=== PATIENT | male | born 1950 | race Caucasian/White ===

== ENCOUNTER 2018-08-09 02:51 | Outpatient (CLI) | payer MEDICARE, BC ==
[2018-08-09 12:29] LABS: #Basophils 0.1 thou/uL (0.0-0.2); #Eosinphils 0.3 thou/uL (0.0-0.7); #Lymphocytes 1.4 thou/uL (1.20-3.40); #Monocytes 0.6 thou/uL (0.11-0.59); #Neutrophils 3.1 thou/uL (1.40-6.50); %Eosinophils 5.7 % (0.0-10.0); %Lymphocytes 25.5 % (21.0-51.0); %Monocytes 11.5 % (0.0-10.0); %Neutrophils 56.3 % (42.0-75.0); Hemoglobin 15.9 g/dL (14.0-18.0); Mean Corpuscular HGB CONC 33.3 g/dL (32.0-36.0); Mean Corpuscular Volume 96.1 fL (78.0-98.0); Mean Platelet Volume 7.5 fL (7.4-10.4); Platelet Count 257 thou/uL (130-400); Red Blood Cell (RBC) Count 4.98 mill/uL (4.70-6.10); White Blood Cell (WBC) Count 5.6 thou/uL (4.8-10.8)
[2018-08-09 12:33] LABS: Bilirubin Negative (Negative); Blood, Urine Negative (Negative); Clarity CLEAR (Clear); Glucose, Urine (Dipstick) Negative (Negative); Leukocyte Negative (Negative); Nitrite Negative (Negative); Protein, Urine (Dipstick) Negative (Neg-Trace); Specific Gravity, Urine 1.006 (1.002-1.036); Urobilinogen 0.2 mg/dL (0.2-1.0); pH, Urine 6.5 (5.0-9.0)
[2018-08-09 12:35] LABS: Prothrombin Time 13.3 SEC (12.0-14.7)
[2018-08-09 12:37] LABS: Bacteria/HPF None Seen HPF (None Seen); Hyaline Casts/LPF 0-3 HYALINE CAST LPF (0-3 Hyaline); RBC/HPF 0-3 HPF (0-3); Squamous Epithelial None Seen HPF (0-3); WBC/HPF None Seen HPF (0-3)
[2018-08-09 12:56] LABS: Anion Gap 12 mmol/L (10-20); BUN (Urea Nitrogen) 10 mg/dL (8.4-25.7); Calc. Creatinine Clearance 0 mL/min (70-130); Calcium 10.2 mg/dL (7.8-10.44); Carbon Dioxide 27 mmol/L (23-31); Chloride 102 mmol/L (98-107); Estimated GFR-MDRD 90; Glucose 93 mg/dL (80-115); Sodium 137 mmol/L (136-145)
== END 2018-08-09 02:52 | disposition home or self-care (01) ==
LOC: LABBT 02:51
PROVIDERS: ATTEND Orthopaedic Surgery
DX: Z01.818 Encounter for other preprocedural examination (principal); M17.12 Unilateral primary osteoarthritis, left knee
CPT/HCPCS: 80048; 81001; 85025; 85610; 87081; 93005; 93010

== ENCOUNTER 2018-08-20 05:26 | Inpatient (IN) | payer MEDICARE, BC ==
[2018-08-20] MEDS ORDERED: Tranexamic Acid 1,000 MG/10 ML VIAL ONE ×2 (06:20→09:01)
[2018-08-20] MEDS ORDERED: Sodium Chloride 0.9% 100 ML ONE (06:20)
[2018-08-20] MEDS ORDERED: Vancomycin HCl 1.5 GM in Sodium Chloride 0.9% 250 ML 300 ML IVPB SCH ×2 (06:30→20:00)
[2018-08-20] MEDS ORDERED: CEFAZOLIN 2 GM in Premix Bag 1 BAG IVPB SCH (06:30)
[2018-08-20] MEDS ORDERED: Tranexamic Acid 1,000 MG in Sodium Chloride 0.9% 100 ML IVPB SCH ×2 (06:30→07:30)
[2018-08-20] MEDS ORDERED: Midazolam HCl 2 mg/2 ml Vial ONE (06:32)
[2018-08-20] MEDS ORDERED: Fentanyl 100 MCG/2 ML VIAL ONE ×2 (06:32→09:01)
[2018-08-20] MEDS ORDERED: Lidocaine 1% (PF) 30 ML VIAL ONE (06:32)
[2018-08-20] MEDS ORDERED: Fentanyl 100 MCG/2 ML VIAL SLOW IVP PRN ×2 (07:17→08:08)
[2018-08-20] MEDS ORDERED: Acetaminophen 325 MG TAB PO PRN (07:17)
[2018-08-20] MEDS ORDERED: diphenhydrAMINE 25 MG CAP PO PRN (07:17)
[2018-08-20] MEDS ORDERED: Promethazine HCl 25 MG/ML VIAL IM PRN ×3 (07:17→09:25)
[2018-08-20] MEDS ORDERED: traMADol HCl 50 MG TAB PO PRN ×3 (07:17→08:08)
[2018-08-20] MEDS ORDERED: Zolpidem Tartrate 5 MG TAB PO PRN ×2 (07:17→08:08)
[2018-08-20] MEDS ORDERED: Ondansetron PF 4 MG/2 ML Vial IVP PRN ×2 (07:17→08:08)
[2018-08-20] MEDS ORDERED: HYDROcodone/Acetaminophen 10/325 mg Tablet PO PRN ×3 (07:17→08:08)
[2018-08-20] MEDS ORDERED: Bupivacaine PF 0.5% 30 ML VIAL ONE (07:50)
[2018-08-20] MEDS ORDERED: Ropivacaine 0.2% 550 ML 550 ML NERVE BLCK SCH (08:08)
[2018-08-20] MEDS ORDERED: Ropivacaine HCl/PF 250 ML in Premix Bag 1 BAG NERVE BLCK SCH (08:51)
[2018-08-20] MEDS ORDERED: Promethazine HCl 25 MG/ML VIAL SLOW IVP PRN (09:25)
[2018-08-20] MEDS ORDERED: Ondansetron HCl/PF 4 MG/2 ML Vial IVP PRN (09:25)
[2018-08-20] MEDS: Sodium Chloride 0.9% 1,000 ML IV SCH ×2 (10:48→18:42)
[2018-08-20] MEDS: Aspirin 81 mg Enteric Coated Tablet PO SCH ×2 (10:48→21:06)
[2018-08-20] MEDS: Fluticasone Propionate Nasal Spray 16 gm Bottle NASAL SCH (10:49)
[2018-08-20] MEDS ORDERED: Ropivacaine 0.2% HCl/PF (40 MG/20 ML VIAL) ONE (11:11)
[2018-08-20] MEDS ORDERED: Ropivacaine 0.5% HCl/PF (150 MG/30 ML VIAL) ONE (11:11)
[2018-08-20] MEDS ORDERED: Ondansetron PF 4 MG/2 ML Vial ONE (11:48)
[2018-08-20] MEDS ORDERED: Ketorolac Tromethamine 30 MG/ML VIAL ONE (11:48)
[2018-08-20] MEDS ORDERED: Lidocaine 1% PF 5 ML VIAL ONE (11:48)
[2018-08-20] MEDS ORDERED: PROPOFOL 200 MG/20 ML VIAL ONE (11:48)
[2018-08-20] MEDS: Montelukast Sodium 10 mg Tablet PO SCH (12:28)
[2018-08-20] MEDS: Ketorolac Tromethamine 30 MG/ML VIAL IVP SCH ×2 (12:28→18:59)
[2018-08-20] MEDS ORDERED: Ketorolac Tromethamine 30 MG/ML VIAL IVP SCH (14:00)
--- NOTE | 2018-08-20 15:59 | OP ---
DATE OF PROCEDURE: 08/20/2018 PREOPERATIVE DIAGNOSIS: Left knee osteoarthrosis. POSTOPERATIVE DIAGNOSIS: Left knee osteoarthrosis. PROCEDURE PERFORMED: Left total knee replacement using [employer] pinless navigation. ORTHOPEDIC RADIOLOGIC TECHNOLOGIST: Bereket Zendejas PA-C. BLOOD LOSS: Minimal. COMPLICATIONS: None. ANESTHESIA: He did have a general anesthetic as well as a preoperative block. IMPLANTS: To the left knee is a [employer] triathlon total knee system the femur size 6 cruciate retaining. We used a size 6 primary tibial base plate, 6 x 9 mm CS tibial polyethylene, and we used a 32 x 10 asymmetric X3 patella. DISPOSITION: He did go to recovery in stable condition. INDICATIONS: A 68-year-old male has bilateral knee arthritis with the left being worse than the right, and at this time, the patient wished to have his knee replaced. PROCEDURE IN DETAIL: After all appropriate consent forms were explained and signed, the patient was taken back to the operating room and at this time was given general anesthetic. Once the level of anesthesia was appropriate, a well-padded tourniquet was placed on the left leg, and the leg was then prepped and draped in standard surgical fashion. The limb was exsanguinated and tourniquet taken up to 300 mmHg. Midline incision was made with a 10 blade down through the skin and subcutaneous tissue. Bovie electrocautery was used to coagulate any brisk venous bleeding. A new blade was used to make a medial parapatellar arthrotomy. Small subperiosteal release was performed medially and excess fat pad was removed. The knee was flexed up to gain access to the femur. The femur was navigated and distal femoral resection was made. Epicondylar access was used to align our sizing jig and this was pinned in place. We sized our femur to be a 6. 4:1 cutting block was applied and pinned. Anterior and posterior chamfer cuts were then made. We navigated out our proximal tibia and made our proximal tibial resection. Spreaders were used to remove any posterior osteophytes off the back of the femur as well as remaining meniscal tissue. A long alignment paul was then used to achieve correct rotation of our tibial baseplate and a size 6 was chosen. This was pinned in place. We trialed the polyethylene and a 6 x 9 mm CS polyethylene gave us full extension and good stability throughout range of motion. Two towel clips and a saw were used to cut our patella. Three lug nuts were drilled and 32 x 10 asymmetric X3 patella was trialed which sat nicely in the trochlear groove. We then drilled our femur and punched our tibia. All components were removed. The knee was thoroughly irrigated and dried. Cement was mixed into the cement gun on the back table. Components were then placed. The knee was held out in full extension until the cement had dried. All excess bone cement was removed. Multiple #2 Vicryl stitches as well as a Quill were used to close our extensor mechanism. 0 Quill followed by a running Monoderm was then used to close the skin. Surgicel glue was then used on the skin. Once this had dried, soft tissue dressing was applied to the limb, tourniquet was let down, and the toes pinked up nicely. The patient was then awakened and taken to the recovery room in stable condition. All counts were correct at the end of the case. The patient did receive preoperative IV antibiotics. The patient was injected with Exparel for postoperative pain relief. Job ID: [id number]
[2018-08-20] MEDS: CEFAZOLIN 2 GM in Premix Bag 1 BAG IVPB SCH ×2 (16:12→21:14)
[2018-08-20] MEDS ORDERED: hydrALAZINE 20 MG/ML VIAL SLOW IVP PRN (16:53)
--- NOTE | 2018-08-20 17:18 | CON ---
DATE OF CONSULTATION: PRIMARY CARE PROVIDER: Dr. Dang Hylton. REASON FOR CONSULTATION: Management of medical comorbidities. HISTORY OF PRESENT ILLNESS: Mr. Yuen is a pleasant 68-year-old gentleman, who underwent left total knee replacement for left knee osteoarthrosis on 08/20/2018. Hospitalist Service has been consulted for management of medical comorbidities. He denies any chest pain or shortness of breath. He denies any fevers or chills. He denies any nausea or vomiting. He reports that pain in the left knee is controlled. REVIEW OF SYSTEMS: All other systems reviewed and found to be negative. PAST MEDICAL HISTORY: Significant for hypertension and dyslipidemia. PAST SURGICAL HISTORY: Significant for left inguinal hernia repair, left cataract surgery, and colonoscopy. SOCIAL HISTORY: The patient denies tobacco use. He drinks 3 or 4 beers a day. He goes for extended periods of time without drinking without any withdrawal symptoms. FAMILY HISTORY: No family history of premature coronary artery disease. ALLERGIES: SULFA. CURRENT HOME MEDICATIONS: 1. Flonase 1 spray nasally daily. 2. Glucosamine/chondroitin complex one caplet daily. 3. Singulair 10 mg daily. 4. Pindolol 5 mg two times a day. 5. Simvastatin 40 mg at bedtime. PHYSICAL EXAMINATION: GENERAL: On examination, Mr. Yuen is awake and alert, not in acute distress. He is obese, with a BMI of 31.8. VITAL SIGNS: Blood pressure is 136/81, pulse 64, respiratory rate 18, and oxygen saturation 96% on room air. He is afebrile. EYES: No scleral icterus, no conjunctival pallor. ENT: Moist mucosal membranes. No oropharyngeal erythema or exudates. NECK: Supple, nontender, trachea is midline. RESPIRATORY: Accessory muscles of breathing are not active. Chest wall movements are symmetric bilaterally. Lungs are clear to auscultation without wheeze, rhonchi, or crepitations. CARDIOVASCULAR: S1 and S2 are heard, regular. Peripheral pulses palpable. No carotid bruit. No pericardial rub. ABDOMEN: Soft, nontender, bowel sounds heard. NEUROLOGIC: Cranial nerves 2 through 12 are intact. MUSCULOSKELETAL: Status post left knee surgery. LYMPHATIC: No cervical lymphadenopathy. PSYCHIATRIC: Normal mood, normal affect, the patient is oriented to person, place, and time. LABORATORY DATA: Mr. Yuen's labs and investigations were reviewed. On 08/09/2018, he had an unremarkable CBC, INR 1.0, and normal chem 7. Urinalysis was normal. ASSESSMENT AND PLAN: Mr. Yuen is a pleasant 68-year-old gentleman who was seen at [facility] on 08/20/2018 for management of medical comorbidities following left total knee replacement. His problem list includes: 1. Hypertension: We will continue pindolol. Blood pressure is controlled. We will add p.r.n. IV hydralazine for any blood pressure spikes. 2. Dyslipidemia: Continue atorvastatin. 3. The patient uses Singulair for allergies, continue the same. Many thanks for allowing me to participate in your patient's care. Please feel free to contact me with any questions or concerns. LEVEL OF RISK: Moderate. LEVEL OF COMPLEXITY: Moderate. Job ID: [id number]
[2018-08-20] MEDS: Atorvastatin Calcium 20 MG TAB PO SCH (21:06)
[2018-08-21] MEDS: Ketorolac Tromethamine 30 MG/ML VIAL IVP SCH ×4 (01:07→17:59)
[2018-08-21 06:16] LABS: Hemoglobin 12.8 g/dL (14.0-18.0); Mean Corpuscular HGB CONC 33.3 g/dL (32.0-36.0); Mean Corpuscular Hemoglobin 31.7 pg (27.0-31.0); Mean Corpuscular Volume 95.2 fL (78.0-98.0); Mean Platelet Volume 7.6 fL (7.4-10.4); Platelet Count 179 thou/uL (130-400); RBC Distribution Width 11.2 % (11.5-14.5); Red Blood Cell (RBC) Count 4.05 mill/uL (4.70-6.10); White Blood Cell (WBC) Count 7.6 thou/uL (4.8-10.8)
[2018-08-21] MEDS: Sodium Chloride 0.9% 1,000 ML IV SCH ×3 (06:59→23:59)
[2018-08-21] MEDS: Montelukast Sodium 10 mg Tablet PO SCH (08:36)
[2018-08-21] MEDS: Multivitamin W/ Minerals 1 TAB PO SCH (08:36)
[2018-08-21] MEDS: Senokot S 8.6-50 MG TAB PO SCH ×2 (08:36→20:26)
[2018-08-21] MEDS: Ferrous Gluconate 324 MG TAB PO SCH ×2 (08:36→17:59)
[2018-08-21] MEDS: HYDROcodone/Acetaminophen 10/325 mg Tablet PO PRN ×2 (08:37→20:25)
[2018-08-21] MEDS: Aspirin 81 mg Enteric Coated Tablet PO SCH ×2 (08:37→20:26)
[2018-08-21] MEDS ORDERED: Polyethylene Glycol 3350 17 GM Packet PO PRN (09:53)
[2018-08-21 11:27] VITALS: BMI 31.8
--- NOTE | 2018-08-21 13:44 | PRG ---
DATE OF SERVICE: 08/21/2018 SUBJECTIVE: Aries is a 68-year-old white male, postop day #1 from left total knee arthroplasty. He is doing very well and has a very little in the way of complaints. He is comfortable. OBJECTIVE: VITAL SIGNS: Temperature 97.8, pulse 62, respiratory rate 20, and blood pressure is 120/74. GENERAL: He is alert and oriented to person, place, time, situation, grossly nonfocal. SKIN: Incision is clean and closed without any erythema. No strikethrough is noted. NEUROLOGIC: He is neurovascularly intact in both lower extremities. IMPRESSION: 1. A 68-year-old male, postop day #1 left total knee arthroplasty, doing well. 2. Asymptomatic postoperative hemorrhagic anemia. PLAN: Continue current care. We will recheck. Tomorrow probable discharge. Job ID: [id number]
[2018-08-21] MEDS: Fluticasone Propionate Nasal Spray 16 gm Bottle NASAL SCH (18:09)
[2018-08-21] MEDS: PINDOLOL 5 MG PO SCH (20:26)
[2018-08-21] MEDS: Atorvastatin Calcium 20 MG TAB PO SCH (20:26)
[2018-08-22] MEDS: Ketorolac Tromethamine 30 MG/ML VIAL IVP SCH ×2 (00:02→06:44)
[2018-08-22 06:20] LABS: Hemoglobin 12.8 g/dL (14.0-18.0); Mean Corpuscular HGB CONC 33.5 g/dL (32.0-36.0); Mean Corpuscular Volume 95.7 fL (78.0-98.0); Mean Platelet Volume 7.7 fL (7.4-10.4); Platelet Count 161 thou/uL (130-400); RBC Distribution Width 11.2 % (11.5-14.5); White Blood Cell (WBC) Count 7.5 thou/uL (4.8-10.8)
[2018-08-22 07:57] VITALS: TEMP 98.4
[2018-08-22] MEDS: Multivitamin W/ Minerals 1 TAB PO SCH (08:22)
[2018-08-22] MEDS: Montelukast Sodium 10 mg Tablet PO SCH (08:22)
[2018-08-22] MEDS: Ferrous Gluconate 324 MG TAB PO SCH (08:22)
[2018-08-22] MEDS: Senokot S 8.6-50 MG TAB PO SCH (08:22)
[2018-08-22] MEDS: HYDROcodone/Acetaminophen 10/325 mg Tablet PO PRN (08:23)
[2018-08-22] MEDS: Aspirin 81 mg Enteric Coated Tablet PO SCH (08:23)
[2018-08-22] MEDS: PINDOLOL 5 MG PO SCH (08:24)
[2018-08-22 11:57] VITALS: BP 134/77
[2018-08-22] MEDS: Fluticasone Propionate Nasal Spray 16 gm Bottle NASAL SCH (13:28)
[2018-08-22] MEDS: Sodium Chloride 0.9% 1,000 ML IV SCH (13:29)
== END 2018-08-22 14:03 | disposition home or self-care (01) | DRG 470 ==
LOC: SDC 05:26 → SJJU 07:17 → EDSTATUS 13:15
PROVIDERS: ADMIT Orthopaedic Surgery; ATTEND Orthopaedic Surgery
PROC: 0SRD0J9 Replacement of Left Knee Joint with Synthetic Substitute, Cemented, Open Approach (ICD-10-PCS; principal; 2018-08-20)
DX: M17.0 Bilateral primary osteoarthritis of knee (principal); D62 Acute posthemorrhagic anemia; I10 Essential (primary) hypertension; E66.9 Obesity, unspecified; Z68.31 Body mass index [BMI] 31.0-31.9, adult; E78.5 Hyperlipidemia, unspecified; Z88.2 Allergy status to sulfonamides; Z79.899 Other long term (current) drug therapy; Z98.42 Cataract extraction status, left eye; Z98.890 Other specified postprocedural states
CPT/HCPCS: 36415; 85027; 86850; 86900; 86901; A4306; C1713; C1776; J0690; J1885; J2001; J2250; J2405; J2704; J2795; J3010; J3370; J3490; J7050; S0020

== ENCOUNTER 2019-05-14 06:39 | Outpatient (CLI) | payer MEDICARE, BC ==
[2019-05-14 10:57] LABS: #Eosinphils 0.2 thou/uL (0.0-0.7); #Lymphocytes 1.1 thou/uL (1.20-3.40); #Monocytes 0.5 thou/uL (0.11-0.59); #Neutrophils 2.5 thou/uL (1.40-6.50); %Basophils 0.9 % (0.0-1.0); %Eosinophils 4.5 % (0.0-10.0); %Lymphocytes 25.7 % (21.0-51.0); %Monocytes 11.5 % (0.0-10.0); %Neutrophils 57.3 % (42.0-75.0); Hemoglobin 16.7 g/dL (14.0-18.0); Mean Corpuscular HGB CONC 33.5 g/dL (32.0-36.0); Mean Corpuscular Volume 92.8 fL (78.0-98.0); Mean Platelet Volume 7.7 fL (7.4-10.4); Platelet Count 211 thou/uL (130-400); RBC Distribution Width 12.9 % (11.5-14.5); Red Blood Cell (RBC) Count 5.37 mill/uL (4.70-6.10); White Blood Cell (WBC) Count 4.4 thou/uL (4.8-10.8)
[2019-05-14 11:16] LABS: Anion Gap 11 mmol/L (10-20); BUN (Urea Nitrogen) 10 mg/dL (8.4-25.7); Calc. Creatinine Clearance 0 mL/min (70-130); Calcium 9.7 mg/dL (7.8-10.44); Carbon Dioxide 27 mmol/L (23-31); Chloride 106 mmol/L (98-107); Estimated GFR-MDRD Greater than 90; Glucose 93 mg/dL (80-115); Potassium 4.2 mmol/L (3.5-5.1); Sodium 140 mmol/L (136-145)
[2019-05-14 11:24] LABS: Prothrombin Time 13.2 SEC (12.0-14.7)
[2019-05-14 11:25] LABS: Bacteria/HPF None Seen HPF (None Seen); Bilirubin Negative (Negative); Blood, Urine Negative (Negative); Clarity Clear (Clear); Glucose, Urine (Dipstick) Normal (Negative); Leukocyte Negative Leu/uL (Negative); Nitrite Negative (Negative); Protein, Urine (Dipstick) Negative (Neg-Trace); RBC/HPF None Seen HPF (0-3); Squamous Epithelial 0-3 HPF (0-3); Urobilinogen Normal mg/dL (Less than 2); WBC/HPF 0-3 HPF (0-3)
== END 2019-05-14 06:40 | disposition home or self-care (01) ==
LOC: LABBT 06:39
PROVIDERS: ATTEND Orthopaedic Surgery
DX: Z01.818 Encounter for other preprocedural examination (principal); M17.11 Unilateral primary osteoarthritis, right knee
CPT/HCPCS: 80048; 81001; 85025; 85610; 85730; 87081; 93005; 93010

== ENCOUNTER 2019-05-20 05:28 | Day surgery (SDC) | payer MEDICARE, BC ==
[2019-05-20] MEDS ORDERED: Vancomycin 1.5 GRAM/300 ML BAG 1.5 GM/300 ML BAG ONE (05:55)
[2019-05-20] MEDS ORDERED: Tranexamic Acid 1,000 MG/10 ML VIAL ONE ×2 (05:55→09:01)
[2019-05-20] MEDS ORDERED: Sodium Chloride 0.9% 100 ML ONE (05:55)
[2019-05-20] MEDS ORDERED: Clindamycin/D5W 600 mg/50 ml Premix Bag ONE (05:55)
[2019-05-20] MEDS ORDERED: Midazolam HCl 2 mg/2 ml Vial ONE (06:19)
[2019-05-20] MEDS ORDERED: Fentanyl 100 MCG/2 ML VIAL ONE ×2 (06:19→09:16)
[2019-05-20] MEDS ORDERED: Bupivacaine PF 0.5% 30 ML VIAL ONE (06:35)
[2019-05-20] MEDS ORDERED: Promethazine HCl 25 MG/ML VIAL IM PRN ×4 (07:53→11:32)
[2019-05-20] MEDS ORDERED: traMADol HCl 50 MG TAB PO PRN ×2 (07:53)
[2019-05-20] MEDS ORDERED: HYDROcodone/Acetaminophen 10/325 mg Tablet PO PRN (07:53)
[2019-05-20] MEDS ORDERED: Ondansetron PF 4 MG/2 ML Vial IVP PRN ×2 (07:53→11:32)
[2019-05-20] MEDS ORDERED: Zolpidem Tartrate 5 MG TAB PO PRN ×2 (07:53→11:32)
[2019-05-20] MEDS ORDERED: Ropivacaine HCl/PF 250 ML in Premix Bag 1 BAG NERVE BLCK SCH (07:53)
[2019-05-20] MEDS ORDERED: Acetaminophen 325 MG TAB PO PRN ×2 (07:53→11:32)
[2019-05-20] MEDS ORDERED: Fentanyl 100 MCG/2 ML VIAL SLOW IVP PRN (07:55)
[2019-05-20] MEDS ORDERED: Promethazine HCl 25 MG/ML VIAL SLOW IVP PRN ×2 (08:01→11:11)
[2019-05-20] MEDS ORDERED: Ondansetron HCl/PF 4 MG/2 ML Vial IVP PRN ×2 (08:01→11:11)
--- NOTE | 2019-05-20 09:37 | OP ---
DATE OF PROCEDURE: 05/20/2019 PREOPERATIVE DIAGNOSIS: Right knee osteoarthrosis. POSTOPERATIVE DIAGNOSIS: Right knee osteoarthrosis. PROCEDURES PERFORMED: Right total knee replacement using [employer] pinless navigation. TRAVELING INVENTORY ASSOCIATE: Bereket Zendejas PA-C ESTIMATED BLOOD LOSS: Minimal. COMPLICATIONS: None. ANESTHESIA: The patient did have a general anesthetic. He also had a preoperative block. IMPLANTS: To the right knee include a [employer] Triathlon total knee system, the femur was a size 6 cruciate retaining femur, we used a size 6 primary tibial baseplate, we used a 6 x 9 mm CS X3 tibial plastic and an asymmetric 29 x 9 X3 patella. DISPOSITION: He did go to the recovery room in stable condition. INDICATIONS: This is a 69-year-old male, who had his left knee replaced last year. He has done very well from that and at this time is presenting for the right knee to be replaced as well. PROCEDURE IN DETAIL: After all appropriate consent forms were explained and signed, the patient was taken back to the operating room and at this time was given general anesthetic. Once the level of anesthesia was appropriate, a well-padded tourniquet was placed on the right leg, and the leg was then prepped and draped in standard surgical fashion. The limb was exsanguinated and tourniquet taken up to 300 mmHg. Midline incision was made with a 10 blade down through the skin and subcutaneous tissue. Bovie electrocautery was used to coagulate any brisk venous bleeding. A new blade was used to make a medial parapatellar arthrotomy. Small subperiosteal release was performed medially and excess fat pad was removed. The knee was flexed up to gain access to the femur. The femur was navigated and distal femoral resection was made. Epicondylar access was used to align our sizing jig and this was pinned in place. We sized our femur to be a 6. 4:1 cutting block was applied and pinned. Anterior and posterior chamfer cuts were then made. We navigated out our proximal tibia and made our proximal tibial resection. Spreaders were used to remove any posterior osteophytes off the back of the femur as well as remaining meniscal tissue. A long alignment paul was then used to achieve correct rotation of our tibial baseplate and a size 6 was chosen. This was pinned in place. We trialed the polyethylene and a 6 x 9 mm CS X3 tibial plastic polyethylene gave us full extension and good stability throughout range of motion. Two towel clips and a saw were used to cut our patella. Three lug nuts were drilled and 29 x 9 X3 patella was trialed which sat nicely in the trochlear groove. We then drilled our femur and punched our tibia. All components were removed. The knee was thoroughly irrigated and dried. Cement was mixed into the cement gun on the back table. Components were then placed. The knee was held out in full extension until the cement had dried. All excess bone cement was removed. Multiple #2 Vicryl stitches as well as a Quill were used to close our extensor mechanism. 0 Quill followed by a running Monoderm was then used to close the skin. Surgicel glue was then used on the skin. Once this had dried, soft tissue dressing was applied to the limb, tourniquet was let down, and the toes pinked up nicely. The patient was then awakened and taken to the recovery room in stable condition. All counts were correct at the end of the case. The patient did receive preoperative IV antibiotics. The patient was injected with Marcaine for postoperative pain relief. Job ID: [id number]
[2019-05-20] MEDS ORDERED: Lidocaine 1% PF 5 ML VIAL ONE (10:17)
[2019-05-20] MEDS ORDERED: Ondansetron PF 4 MG/2 ML Vial ONE (10:17)
[2019-05-20] MEDS ORDERED: Glycopyrrolate 0.2 MG/ML 5 ML SYRINGE ONE (10:17)
[2019-05-20] MEDS ORDERED: PROPOFOL 200 MG/20 ML VIAL ONE (10:17)
[2019-05-20] MEDS ORDERED: Ketorolac Tromethamine 30 MG/ML VIAL ONE (10:17)
[2019-05-20] MEDS ORDERED: Ropivacaine 0.2% HCl/PF (40 MG/20 ML VIAL) ONE (10:17)
[2019-05-20] MEDS ORDERED: Bupivacaine HCl 0.5%/Epinephrine 1:200,000/PF 30 ml Vial ONE (10:17)
[2019-05-20] MEDS ORDERED: diphenhydrAMINE 25 MG CAP PO PRN (11:32)
[2019-05-20 11:39] VITALS: BMI 31.5
[2019-05-20] MEDS ORDERED: Tranexamic Acid 1,000 MG in Sodium Chloride 0.9% 100 ML IVPB SCH (11:45)
[2019-05-20] MEDS: Clindamycin/D5W 900 MG in Premix Bag 1 BAG IVPB SCH ×2 (13:12→18:15)
[2019-05-20] MEDS: Sodium Chloride 0.9% 1,000 ML IV SCH ×3 (13:18→22:11)
[2019-05-20] MEDS: HYDROcodone/Acetaminophen 10/325 mg Tablet PO PRN (13:19)
[2019-05-20] MEDS ORDERED: Sodium Chloride 0.9% 10 ML ONE (13:43)
[2019-05-20] MEDS: Ketorolac Tromethamine 30 MG/ML VIAL IVP SCH ×2 (15:29→21:34)
[2019-05-20] MEDS ORDERED: Vancomycin HCl 1.5 GM in Sodium Chloride 0.9% 250 ML 300 ML IVPB SCH (18:00)
[2019-05-20] MEDS ORDERED: Vancomycin 1.5 GRAM/300 ML BAG 1.5 GM in Premix Bag 1 BAG IVPB SCH (18:00)
[2019-05-20] MEDS: Aspirin 81 mg Enteric Coated Tablet PO SCH (20:54)
[2019-05-20] MEDS: Atorvastatin Calcium 20 MG TAB PO SCH (20:54)
[2019-05-20] MEDS: Senokot S 8.6-50 MG TAB PO SCH (20:54)
[2019-05-20] MEDS: Ferrous Gluconate 324 MG TAB PO SCH (20:54)
[2019-05-20] MEDS: PINDOLOL 5 MG PO SCH (21:36)
[2019-05-21 04:48] LABS: Hemoglobin 13.3 g/dL (14.0-18.0); Mean Corpuscular HGB CONC 31.9 g/dL (32.0-36.0); Mean Corpuscular Hemoglobin 29.9 pg (27.0-31.0); Mean Corpuscular Volume 93.7 fL (78.0-98.0); Mean Platelet Volume 7.3 fL (7.4-10.4); Platelet Count 165 thou/uL (130-400); RBC Distribution Width 12.9 % (11.5-14.5); Red Blood Cell (RBC) Count 4.45 mill/uL (4.70-6.10); White Blood Cell (WBC) Count 7.9 thou/uL (4.8-10.8)
[2019-05-21] MEDS: HYDROcodone/Acetaminophen 10/325 mg Tablet PO PRN ×2 (05:37→10:27)
[2019-05-21] MEDS: Ketorolac Tromethamine 30 MG/ML VIAL IVP SCH ×4 (05:38→22:25)
--- NOTE | 2019-05-21 06:21 | PDOC.HOSPP ---
- Subjective Encounter Date: 05/20/19 Encounter Time: 14:00 Subjective: Patient seen and examined for med mngt. Pain controlled. No CP/SOB/Palpitations/ N or V. No new complaints. No overnight events - Objective Vital Signs & Weight: Vital Signs (12 hours) Temp Pulse Resp BP Pulse Ox 05/21/19 00:05 100.1 F H 78 16 115/67 98 05/20/19 19:36 99.3 F 82 16 115/65 96 Weight Weight 226 lb I&O: 05/19/19 05/20/19 05/21/19 06:59 06:59 06:59 Intake Total 1900 Output Total 520 Balance 1380 Result Diagrams: 05/21/19 04:35 Additional Labs: Laboratory Tests 05/14/19 10:18 Sodium 140 BUN 10 Creatinine 0.84 EKG Reviewed by me: Yes (SR) Hospitalist ROS - Review of Systems Respiratory: denies: cough, dry, shortness of breath, hemoptysis, SOB with excertion, pleuritic pain, sputum, wheezing, other Cardiovascular: denies: chest pain, palpitations, orthopnea, paroxysmal noc. dyspnea, edema, light headedness, other - Medication Medications: Active Medications Generic Name Dose Route Start Last Admin Trade Name Freq PRN Reason Stop Dose Admin Hydrocodone Bitart/Acetaminophen 1 tab 05/20/19 07:53 05/20/19 21:35 [place] 10/325 PO 1 tab Q4H PRN Administration Pain (1-3) Hydrocodone Bitart/Acetaminophen 2 tab 05/20/19 07:53 05/21/19 05:37 [place] 10/325 PO 2 tab Q4H PRN Administration PAIN (4-6) Aspirin 81 mg 05/20/19 21:00 05/20/19 20:54 Ecotrin PO 81 mg BID DEAN Administration Atorvastatin Calcium 20 mg 05/20/19 21:00 05/20/19 20:54 Lipitor PO 20 mg HS DEAN Administration Ferrous Gluconate 324 mg 05/20/19 21:00 05/20/19 20:54 Fergon PO 324 mg BID DEAN Administration Sodium Chloride 1,000 mls @ 100 mls/hr 05/20/19 11:45 05/20/19 22:11 Normal Saline 0.9% IV Not Given .Q10H DEAN Ketorolac Tromethamine 15 mg 05/20/19 14:00 05/21/19 05:38 Toradol IVP 05/22/19 14:01 15 mg Q8HR DEAN Administration Pindolol 5mg Patient 1 each 05/20/19 21:00 05/20/19 21:36 's Home Medication PO 1 each BID DEAN Administration Senna/Docusate Sodium 2 tab 05/20/19 21:00 05/20/19 20:54 Senokot S PO 2 tab BID DEAN Administration - Exam Heart: RRR, no rubs Respiratory: no wheezes, no rales, no ronchi Gastrointestinal: soft, non-tender, non-distended, normal bowel sounds Extremities: no cyanosis, no clubbing Neurological: no new deficit Psychiatric: normal affect, A&O x 3 Hosp A/P - Plan DVT proph w/SCDs s/p Right TKR surgery by Dr. Menezes. HTN HLD Seasonal Allergies Obese BMI 31 Plan: Restart Pindolol Restart simvastatin Restart Monelukast Continue PT/OT DVT prophylaxis Full Code DPOA - family
[2019-05-21] MEDS: Sodium Chloride 0.9% 1,000 ML IV SCH ×2 (07:21→13:14)
[2019-05-21] MEDS: Ferrous Gluconate 324 MG TAB PO SCH ×2 (08:26→20:01)
[2019-05-21] MEDS: Senokot S 8.6-50 MG TAB PO SCH ×2 (08:26→20:01)
[2019-05-21] MEDS: Multivitamin W/ Minerals 1 TAB PO SCH (08:26)
[2019-05-21] MEDS: PINDOLOL 5 MG PO SCH ×2 (08:28→20:01)
[2019-05-21] MEDS: Fluticasone Propionate Nasal Spray 16 gm Bottle NASAL SCH (08:28)
[2019-05-21] MEDS: Aspirin 81 mg Enteric Coated Tablet PO SCH ×2 (08:33→20:01)
[2019-05-21] MEDS: Montelukast Sodium 10 mg Tablet PO SCH (08:33)
[2019-05-21] MEDS ORDERED: IRON PO SCH (09:00)
--- NOTE | 2019-05-21 09:53 | PRG ---
DATE OF SERVICE: 05/21/2019 SUBJECTIVE: Aries is a 69-year-old male, postop day #1 from a right total knee arthroplasty. This is his second arthroplasty. He is doing very well and quite comfortable at this point. OBJECTIVE: VITAL SIGNS: Temperature 98.8, pulse 67, respiratory rate 16, and blood pressure is 124/66. GENERAL: He is alert and oriented to person, place, time, and situation. Responsive and appropriate with examiner, sitting up and quite comfortable. EXTREMITIES: His incision is clean. He is neurovascularly intact in the right lower extremity. No strike through is noted. LABORATORY DATA: Hemoglobin and hematocrit are 13.3 and 41.7. IMPRESSION: A 69-year-old male, postop day #1 right total knee arthroplasty, doing well. PLAN: Continue current care. Discharge to home tomorrow. Job ID: [id number]
[2019-05-21] MEDS ORDERED: cloNIDine 0.1 MG TAB PO PRN (15:59)
[2019-05-21] MEDS: Atorvastatin Calcium 20 MG TAB PO SCH (20:01)
--- NOTE | 2019-05-22 01:02 | PDOC.HOSPP ---
- Subjective Encounter Date: 05/21/19 Encounter Time: 17:30 Subjective: Patient seen and examined for med mngt. No CP. No new complaints. No overnight events - Objective Vital Signs & Weight: Vital Signs (12 hours) Temp Pulse Resp BP Pulse Ox 05/22/19 00:28 100.1 F H 77 18 133/66 93 L 05/21/19 20:00 99.7 F H 90 16 159/68 H 94 L 05/21/19 15:21 99.5 F 81 16 165/71 H 96 Weight Admit Weight 226 lb Weight 226 lb I&O: 05/20/19 05/21/19 05/22/19 06:59 06:59 06:59 Intake Total 3330 1200 Output Total 1820 0 Balance 1510 1200 Result Diagrams: 05/21/19 04:35 Hospitalist ROS - Review of Systems Cardiovascular: denies: chest pain, palpitations, orthopnea, paroxysmal noc. dyspnea, edema, light headedness, other Gastrointestinal: denies: nausea, vomiting, abdominal pain, diarrhea, constipation, melena, hematochezia, other - Medication Medications: Active Medications Generic Name Dose Route Start Last Admin Trade Name Freq PRN Reason Stop Dose Admin Hydrocodone Bitart/Acetaminophen 1 tab 05/20/19 07:53 05/20/19 21:35 [place] 10/325 PO 1 tab Q4H PRN Administration Pain (1-3) Hydrocodone Bitart/Acetaminophen 2 tab 05/20/19 07:53 05/21/19 10:27 [place] 10/325 PO 2 tab Q4H PRN Administration PAIN (4-6) Aspirin 81 mg 05/20/19 21:00 05/21/19 20:01 Ecotrin PO 81 mg BID DEAN Administration Atorvastatin Calcium 20 mg 05/20/19 21:00 05/21/19 20:01 Lipitor PO 20 mg HS DEAN Administration Ferrous Gluconate 324 mg 05/20/19 21:00 05/21/19 20:01 Fergon PO 324 mg BID DEAN Administration Fluticasone Propionate 0 gm 05/21/19 09:00 05/21/19 08:28 Flonase Nasal [place] NASAL Not Given DAILY DEAN Ropivacaine 250 ml/ Device 250 mls @ 10 mls/hr 05/20/19 07:53 05/21/19 11:31 NERVE BLCK 05/23/19 07:52 250 mls INF DEAN Administration Sodium Chloride 1,000 mls @ 100 mls/hr 05/20/19 11:45 05/21/19 13:14 Normal Saline 0.9% IV Not Given .Q10H DEAN Iron/Minerals/Multivitamins 1 tab 05/21/19 09:00 05/21/19 08:26 Theragran M PO 1 tab DAILY DEAN Administration Ketorolac Tromethamine 15 mg 05/20/19 14:00 05/21/19 22:25 Toradol IVP 05/22/19 14:01 15 mg Q8HR DEAN Administration Montelukast Sodium 10 mg 05/21/19 09:00 05/21/19 08:33 Singulair PO 10 mg DAILY DEAN Administration Pindolol 5mg Patient 1 each 05/20/19 21:00 05/21/19 20:01 's Home Medication PO 1 each BID DEAN Administration Senna/Docusate Sodium 2 tab 05/20/19 21:00 05/21/19 20:01 Senokot S PO 2 tab BID DEAN Administration Tramadol HCl 50 mg 05/20/19 07:53 05/21/19 20:01 Ultram PO 50 mg Q6H PRN Administration Mild Pain (1-3) - Exam General Appearance: NAD Heart: RRR, no gallops Respiratory: no wheezes, no ronchi Gastrointestinal: non-tender, non-distended, normal bowel sounds Extremities: no cyanosis Hosp A/P - Plan DVT proph w/SCDs s/p Right TKR surgery by Dr. Menezes. HTN HLD Seasonal Allergies Obese BMI 31 ROGERIO on CPAP Plan: Cont Pindolol/simvastatin Cont Monelukast Continue PT/OT
[2019-05-22] MEDS: Sodium Chloride 0.9% 1,000 ML IV SCH ×2 (02:57→09:08)
[2019-05-22] MEDS: Ketorolac Tromethamine 30 MG/ML VIAL IVP SCH ×2 (05:15→13:59)
[2019-05-22 05:35] LABS: Hemoglobin 13.2 g/dL (14.0-18.0); Mean Corpuscular HGB CONC 33.6 g/dL (32.0-36.0); Mean Corpuscular Hemoglobin 31.5 pg (27.0-31.0); Mean Corpuscular Volume 93.9 fL (78.0-98.0); Mean Platelet Volume 7.3 fL (7.4-10.4); Platelet Count 143 thou/uL (130-400); RBC Distribution Width 12.7 % (11.5-14.5); White Blood Cell (WBC) Count 8.1 thou/uL (4.8-10.8)
[2019-05-22] MEDS: Fluticasone Propionate Nasal Spray 16 gm Bottle NASAL SCH (09:08)
[2019-05-22] MEDS: Aspirin 81 mg Enteric Coated Tablet PO SCH (09:31)
[2019-05-22] MEDS: Montelukast Sodium 10 mg Tablet PO SCH (09:31)
[2019-05-22] MEDS: Multivitamin W/ Minerals 1 TAB PO SCH (09:31)
[2019-05-22] MEDS: Senokot S 8.6-50 MG TAB PO SCH (09:31)
[2019-05-22] MEDS: Ferrous Gluconate 324 MG TAB PO SCH (09:31)
[2019-05-22] MEDS: PINDOLOL 5 MG PO SCH (09:33)
[2019-05-22] MEDS: HYDROcodone/Acetaminophen 10/325 mg Tablet PO PRN (09:35)
[2019-05-22 10:49] VITALS: BP 128/68; TEMP 100.6
--- NOTE | 2019-05-23 14:55 | DIS ---
DATE OF ADMISSION: 05/20/2019 DATE OF DISCHARGE: 05/22/2019 This is Yehuda Huff PA-C dictating a report for Cliff Menezes MD. PREOPERATIVE DIAGNOSES: 1. Right knee osteoarthritis. 2. Degenerative joint disease. POSTOPERATIVE DIAGNOSES: 1. Right knee osteoarthritis. 2. Degenerative joint disease. PROCEDURE PERFORMED: The patient underwent a right total knee replacement. HOSPITAL COURSE: Hospital stay was unremarkable. He was admitted to [address], where he worked with staff, Physical Therapy, and Occupational Therapy, and progressed quite well. By postop day 2, he was ready to discharge. DISCHARGE CONDITION: Good/stable. DISPOSITION: Home. FOLLOWUP: Follow up would be in 10 to 14 days or sooner if there are problems and/or concerns. DISCHARGE MEDICATIONS: Given with usage instructions. Job ID: [id number]
== END 2019-05-22 15:19 | disposition home or self-care (01) ==
LOC: SDC 05:28 → SJJU 10:02 → SDC 05-22 15:19
PROVIDERS: ATTEND Orthopaedic Surgery
PROC: 0SRC0JZ Replacement of Right Knee Joint with Synthetic Substitute, Open Approach (ICD-10-PCS; principal; 2019-05-20)
DX: M17.11 Unilateral primary osteoarthritis, right knee (principal); I10 Essential (primary) hypertension; E78.5 Hyperlipidemia, unspecified; E66.9 Obesity, unspecified; G47.33 Obstructive sleep apnea (adult) (pediatric); Z68.31 Body mass index [BMI] 31.0-31.9, adult; Z79.899 Other long term (current) drug therapy; Z88.2 Allergy status to sulfonamides; Z99.89 Dependence on other enabling machines and devices; Z96.652 Presence of left artificial knee joint
CPT/HCPCS: 27447; 85027; 97110; 97116 ×2; 97139; 97150; 97530; C1713; C1776; 36415; 36416; J0670; J1885; J2001; J2250; J2405; J2704; J2795; J3010; J3490; S0020